=== PATIENT | female | born 1980 | race Caucasian/White ===

== ENCOUNTER 2018-10-28 06:42 | Day surgery (SDC) | payer OTHER, SELFPAY ==
[2018-10-28] VITALS (11 sets, daily range): BP systolic 87–98; BP diastolic 51–65; PULSE 72–85; RESP 12–17; TEMP 36.2–37; O2SAT 94–98; BMI 26.4
--- NOTE | 2018-10-28 | PATH_ITS ---
[facility] Accession Number: [id number] . 01 Material submitted: . PART A: DUODENUM PART B: ANTRUM PART C: GE JUNCTION PART D: BIOPSY OF 25CM PART E: POLYP AT 15CM . 02 Diagnosis: A. Duodenum, Biopsies: Duodenal mucosa with gastric heterotopia. Negative for intraepithelial lymphocytosis or villous blunting. Negative for dysplasia and malignancy. . B. Stomach, Antrum, Biopsy: Antral mucosa with no diagnostic abnormality. No evidence of Helicobacter on H/E stain. Negative for intestinal metaplasia. Negative for dysplasia and malignancy. . C. Gastroesophageal Junction, Biopsy: Squamocolumnar junctional mucosa with no diagnostic abnormality. Negative for intestinal metaplasia. Negative for dysplasia and malignancy. . D. Colon, 25 cm, Biopsy: Tubular adenoma. . E. Colon, Polyp at 15 cm, Biopsy: Tubulovillous adenoma. No evidence of malignancy or high-grade dysplasia. [facility]/10/29/2018 . 02 Electronically signed: . Thi Foote MD, Pathologist NPI- [id number] . 01 Gross description: . Received five formalin-filled containers, each labeled with the patient's name: . A. In a container labeled duodenum, the specimen consists of two 0.1 0.2 cm portions of tissue, entirely submitted in cassette A. B. In a container labeled antrum, the specimen consists of a 0.1 cm portion of tissue, entirely submitted in cassette B. C. In a container labeled GE junction, the specimen consists of two 0.2-0.4 cm portions of tissue, entirely submitted in cassette C. D. In a container labeled biopsy at 25 cm, the specimen consists of three 0.3-0.4 cm portions of tissue, entirely submitted in cassette D. E. In a container labeled polyp at 15 cm, the specimen consists of multiple fragments of fisher, soft tissue and/or debris which range in size from less than 0.1 cm to 1.2 cm in greatest dimension. The smallest fragments are entirely submitted cassette E1. The largest fragment is trisected and totally submitted in cassette E2. ([id number]) /FRR . 02 Pathologist provided ICD-10: D12.6 . 02 CPT . 830550, 724644, 339656, [id number], [id number] Performed at: 01 [facility] [address] [address], [place], [place] [id number] MD Cameron Wiseman MD Phone: [phone] Performed at: 02 [facility] [address] [address] [place] [id number] MD Thi Foote MD Phone: [phone]
[2018-10-28] MEDS: SODIUM CHLORIDE 0.9% 1,000 ML 200 ML IV (09:00)
--- NOTE | 2018-10-28 09:10 | PM.HP.1 ---
History of Present Illness Date Patient Seen: 10/28/18 Time Patient Seen: 09:11 Chief complaint: [id number] Narrative: Jillian is a 38-year-old lady who presents today for EGD and colonoscopy due to bright red blood per rectum. She denies any changes in her health since I last saw her in the office in mid September. She reports that she is feeling well today. Patient History Surgical History History of third molar tooth extraction Family & Social History Family History: Reviewed 10/28/18 by Katarzyna Nielson MD Social History: household members children Tobacco & Substance use: Smoking Status Current every day smoker alcohol intake current Meds Home Medications Medication Instructions Recorded Confirmed Type Breast Pump - Double Electric 1 dev SEE INSTRUCTIONS #1 07/15/16 Rx imiquimod [Aldara] 1 randolph TOPICAL 3 TIMES/WEEK #10 pac 11/14/16 Rx levonorgestrel [Mirena] 52 mg INTRAU #0 02/11/17 History acetaminophen 500 mg tablet 1,000 mg PO .prn PRN tab 09/23/18 10/28/18 History ascorbic acid 1,000 mg PO each 09/23/18 09/23/18 History nq-nmldpmhvrayt-evhbxogb powder effervescent pack hydrocodone 5 mg-acetaminophen 300 1 tab PO .prn tab 09/23/18 09/23/18 History mg tablet Allergies Allergy/AdvReac Type Severity Reaction Status Date / Time ibuprofen [IBUPROFEN] AdvReac Intermediate MAKES MY Verified 10/28/18 07:59 STOMACH BLEED Latex, Natural Rubber AdvReac Intermediate Rash Verified 10/28/18 07:59 Review of Systems Review of Systems All systems reviewed & are unremarkable except as noted in HPI and below Exam Vital Signs (past 8 hours): - 10/28/18 08:03 Temperature 98.0 F Pulse Rate 77 Respiratory Rate 16 Blood Pressure 92/65 Pulse Oximetry 98 Oxygen Delivery Method Room Air Narrative Exam Narrative: Well-nourished well-developed young woman in no distress. HEENT: Normocephalic and atraumatic, pupils equal round reactive to light accommodation with anicteric sclera Lungs: Clear bilaterally Heart: Regular rate and rhythm Abdomen: Soft, nontender, active bowel sounds Extremities: Warm and well perfused without edema Assessment & Plan Plan: Assessment/Plan Narrative: Wonderful 38-year-old lady who is generally healthy. We discussed the risks and benefits of both EGD and colonoscopy the patient expressed a desire to have the procedures today.
--- NOTE | 2018-10-28 09:13 | P.HP_ITS ---
History of Present Illness Date Patient Seen: 10/28/18 Time Patient Seen: 09:11 Chief complaint: [id number] Narrative: Jillian is a 38-year-old lady who presents today for EGD and colonoscopy due to bright red blood per rectum. She denies any changes in her health since I last saw her in the office in mid September. She reports that she is feeling well today. Patient History Surgical History History of third molar tooth extraction Family & Social History Family History: Reviewed 10/28/18 by Katarzyna Nielson MD Social History: household members children Tobacco & Substance use: Smoking Status Current every day smoker alcohol intake current Meds Home Medications Medication Instructions Recorded Confirmed Type Breast Pump - Double Electric 1 dev SEE INSTRUCTIONS #1 07/15/16 Rx imiquimod [Aldara] 1 randolph TOPICAL 3 TIMES/WEEK #10 pac 11/14/16 Rx levonorgestrel [Mirena] 52 mg INTRAU #0 02/11/17 History acetaminophen 500 mg tablet 1,000 mg PO .prn PRN tab 09/23/18 10/28/18 History ascorbic acid 1,000 mg PO each 09/23/18 09/23/18 History lz-mvclgbwnogik-ovnjwfba powder effervescent pack hydrocodone 5 mg-acetaminophen 300 1 tab PO .prn tab 09/23/18 09/23/18 History mg tablet Allergies Allergy/AdvReac Type Severity Reaction Status Date / Time ibuprofen [IBUPROFEN] AdvReac Intermediate MAKES MY Verified 10/28/18 07:59 STOMACH BLEED Latex, Natural Rubber AdvReac Intermediate Rash Verified 10/28/18 07:59 Review of Systems Review of Systems All systems reviewed & are unremarkable except as noted in HPI and below Exam Vital Signs (past 8 hours): - 10/28/18 08:03 Temperature 98.0 F Pulse Rate 77 Respiratory Rate 16 Blood Pressure 92/65 Pulse Oximetry 98 Oxygen Delivery Method Room Air Narrative Exam Narrative: Well-nourished well-developed young woman in no distress. HEENT: Normocephalic and atraumatic, pupils equal round reactive to light accommodation with anicteric sclera Lungs: Clear bilaterally Heart: Regular rate and rhythm Abdomen: Soft, nontender, active bowel sounds Extremities: Warm and well perfused without edema Assessment & Plan Plan: Assessment/Plan Narrative: Wonderful 38-year-old lady who is generally healthy. We discussed the risks and benefits of both EGD and colonoscopy the patient expressed a desire to have the procedures today.
[2018-10-28] MEDS: fentaNYL 250 MCG/5 ML INJ IV (09:22)
[2018-10-28] MEDS: MIDAZOLAM 5 MG/5 ML VIAL IV (09:22)
--- NOTE | 2018-10-28 09:55 | PM.OP.1 ---
Operative Date/Time/Diagnoses Date of procedure: 10/28/18 Time of procedure: 09:55 Pre-op diagnosis: Bright red blood per rectum Post-op diagnosis: same Procedure & Clinicians Procedure: Esophagogastroduodenoscopy and colonoscopy with biopsies and polypectomy x4 Same procedure as scheduled: Yes Indications: No prior colonoscopy or esophagogastroduodenoscopy Surgeon: Katarzyna Nielson Click Yes if Unassisted: Yes Anesthesia Type: Sedation (Versed 10 mg; fentanyl 300 mcg) Operative Notes Findings: 1. The 1st portion of the duodenum with hyperplastic appearing mucosa consistent with gastric heterotopia or healing ulceration 2. Mild antral gastritis 3. Evidence of healing linear ulcerations in the cardia of the stomach 4. Esophageal hiatus at 36 cm from the incisors and mucosal junction at 35 cm from the incisors 5. Regular appearing mucosal junction 6. The remainder of the esophagus is normal in appearance 7. Normal posterior oropharynx and true vocal cords 8. Excellent prep. 9. Two 2-3 mm sessile polyps at 25 cm from the anal verge removed with Jumbo cold forceps and retained for pathology 10. One 4 mm polyp and 1 15 mm polyp at 15 cm from the anal verge removed with snare and cautery and retained for pathology 11. Grade 1 internal and Closure Type: not applicable Estimated Blood Loss (mL): 1 Procedure in detail: After obtaining informed consent, the patient was brought to the GI suite and placed in the left lateral decubitus position on the examination table. After placement of appropriate monitors, the patient was given incremental doses of Versed and Fentanyl until an appropriate level of sedation was achieved. A time out was held per SCOAP protocol.We began with EGD. A bite block was gently placed between the patient's teeth. The endoscope was lubricated and then passed into the patient's posterior oropharynx. The esophagus was cannulated under direct vision and the scope was passed to the second portion of the duodenum without difficulty. The scope was then withdrawn with careful examination of all areas of the upper GI tract and mucosa. In the stomach, the instrument was retroflexed and the GE junction examined. The scope was straightened and the procedure continued with examination of the remainder of the upper GI tract. Findings are noted above. Air was aspirated from the stomach and the endoscope gently removed from the esophagus. The examination table was turned and we continued with the colonoscopy. A digital rectal examination was performed and did not reveal any masses or obstructing lesions. The colonoscope was gently passed into the patient's anus and the entire colon navigated to the level of the cecum with minimal difficulty. Once in the cecum, the scope was withdrawn being sure to go before and beyond all mucosal folds and prominences and get an excellent examination. The findings are noted above. At the level of the rectal vault, the scope was retroflexed and the internal anal canal was examined. The scope was straightened and air aspirated from the colon. The instrument was removed from the patient's body and the procedure was concluded.The patient was allowed to awaken from sedation without difficulty and taken to the post-anesthesia care unit in good condition. Total sedation time was 41 min Total withdrawal time from the colonoscopy was 16 min 8 sec Complications: none Condition: stable Disposition: PACU Plan for aftercare: 1. Discharge to home 2. We will contact you with pathology results 3. Plan for next colonoscopy in 1 year or sooner depending upon pathology results
[2018-10-28] MEDS: LIDOCAINE 4% SOLN 50 ML 20 ML TOP (10:02)
[2018-10-28] MEDS: TETRACAINE/BENZOCAINE/BUTAMBEN (CETACAINE) BOTTLE 1 SPRAY TOP (10:03)
== END 2018-10-28 11:20 | disposition home or self-care (01) ==
PROVIDERS: PCP Family Medicine; Visit Provider Surgery
PROC: 0DJ08ZZ Inspection of Upper Intestinal Tract, Via Natural or Artificial Opening Endoscopic (ICD-10-PCS; CPT 43235; principal; 2018-10-28 08:45)
PROC: 0DJD8ZZ Inspection of Lower Intestinal Tract, Via Natural or Artificial Opening Endoscopic (ICD-10-PCS; CPT 45378; 2018-10-28 08:45)
DX: K62.5 Hemorrhage of anus and rectum (principal); K29.70 Gastritis, unspecified, without bleeding; D12.6 Benign neoplasm of colon, unspecified; F17.210 Nicotine dependence, cigarettes, uncomplicated
CPT/HCPCS: 45385; 45380; 43239; 99152; 99153; J2250; J3010

== ENCOUNTER → 2022-07-07 10:16 | Outpatient (CLI) | payer OTHER, SELFPAY ==
[2022-07-07 14:05] LABS: COVID19 -Nasal RAPID Negative (Negative)
== END ==
PROVIDERS: PCP Physician Assistant; Visit Provider Surgery
DX: Z20.822 Contact with and (suspected) exposure to COVID-19 (principal); Z01.812 Encounter for preprocedural laboratory examination
CPT/HCPCS: 87635; C9803

== ENCOUNTER → 2022-07-07 10:18 | Outpatient (CLI) | payer OTHER, SELFPAY ==
--- NOTE | 2022-07-07 | DI.MG.S_ITS ---
BILATERAL DIGITAL SCREENING MAMMOGRAM 3D/2D WITH CAD: 07/07/2022 CLINICAL: Routine screening. Baseline exam. Comparison is made to exam dated: 08/26/2017 mammogram - [facility]. There are scattered areas of fibroglandular density in both breasts (category b / 25%-50% glandular tissue). Current study was also evaluated with a Computer Aided Detection (CAD) system. No significant masses, calcifications, or other findings are seen in either breast. There has been no significant interval change. IMPRESSION: NEGATIVE There is no mammographic evidence of malignancy. A 1 year screening mammogram is recommended. Based on the Tyrer Cuzick model (a risk assessment model) the patient's lifetime risk is 11.1% and her 10 year risk is 1.5%. According to the ACR, ACS, and NCCN guidelines, an annual breast MRI exam along with mammogram is recommended if the patient's lifetime risk is 20% or greater. This exam was interpreted at Station ID: [id number]. NOTE: For mammograms, a report in lay terms will be sent to the patient. Approximately 15% of breast malignancies will not be visualized mammographically. In the management of a palpable breast mass, a negative mammogram must not discourage biopsy of a clinically suspicious lesion. Electronically Signed By: Tobias poe/[email or web address]:07/07/2022 13:35:34 letter sent: Normal Exam ACR BI-RADS Category 1: Negative 3341F
== END ==
PROVIDERS: PCP Physician Assistant; Referring Provider Physician Assistant; Visit Provider Physician Assistant
DX: Z12.31 Encounter for screening mammogram for malignant neoplasm of breast (principal)
CPT/HCPCS: 77063; 77067

== ENCOUNTER 2022-07-08 08:18 | Day surgery (SDC) | payer OTHER, SELFPAY ==
[2022-07-08] VITALS (7 sets, daily range): BP systolic 80–119; BP diastolic 33–75; PULSE 85–107; RESP 12–19; TEMP 36.3–36.8; O2SAT 97–100; BMI 31.1
[2022-07-08] MEDS: LACTATED RINGERS 1,000 ML 42 ML IV (08:50)
--- NOTE | 2022-07-08 08:59 | PM.HP.1 ---
History of Present Illness History of Present Illness Date Patient Seen: 07/08/22 Chief complaint: Colonoscopy Narrative: The patient presents for colorectal screening. She has a personal history of colonic polyps. Last colonoscopy 2019 significant for benign polyps. No personal or family history of colon cancer. On further history denies any recent gastrointestinal symptoms with the exception of occasional bright red blood per rectum which she attributes to hemorrhoid disease.. No nausea, vomiting, abdominal pain, loss of appetite, unexplained weight loss, change in bowel habits, diarrhea, constipation, melena. 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) Surgical History History of third molar tooth extraction Family & Social History Family History Father Hypertension Cancer of kidney Heart disease Diabetes mellitus Hyperlipidemia Grandmother Hypertension Cancer Brother Diabetes mellitus Grandmother Cancer Heart disease Grandfather Diabetes mellitus Social History: household members children Tobacco & Substance use: Tobacco type cannabis/marijuana Smoking Status Former smoker alcohol intake current alcohol intake frequency holiday/special occasion Substance Use Type marijuana Meds Home Medications and Allergies Home Medications Medication Instructions Recorded Confirmed Type levonorgestrel 20 mcg/24 hours (7 52 mg INTRAU ##0 02/11/17 12/09/21 History yrs) 52 mg intrauterine device (Mirena) acetaminophen 500 mg tablet 1,000 mg PO .prn PRN Pain, Mild 09/23/18 12/09/21 History (Tylenol Extra Strength) ascorbic acid 1,000 mg PO 09/23/18 12/09/21 History yz-inmvlxbuqwwt-obgacgzs powder effervescent pack (Emergen-C) hydrocodone 5 mg-acetaminophen 300 1 tab PO .prn 09/23/18 12/09/21 History mg tablet Allergies Allergy/AdvReac Type Severity Reaction Status Date / Time ibuprofen [IBUPROFEN] AdvReac Intermediate MAKES MY Verified 07/08/22 08:30 STOMACH BLEED Latex, Natural Rubber AdvReac Intermediate Rash Verified 07/08/22 08:30 Exam Vital Signs (past 8 hours): - 07/08/22 08:25 Temperature 98.2 F Pulse Rate 100 H Respiratory Rate 18 Blood Pressure 119/73 Pulse Oximetry 98 Oxygen Delivery Method Room Air Oxygen Delivery Method Room Air Narrative Exam Narrative: General adult woman alert oriented no acute distress Abdomen soft nontender nondistended Assessment & Plan Assessment and plan (1) Personal history of colonic polyps: Status: Acute Assessment & Plan narrative: The patient requires colorectal screening and colonoscopy is recommended. Technical details were discussed. Risks, benefits, alternatives explained. Risks including but not limited to myocardial infarction, aspiration, bleeding, pain, missed lesion, incomplete examination, need for further radiographic studies, colonic perforation, and need for major abdominal surgery were discussed. All questions were answered to their satisfaction, and they are in agreement with this plan. Time Spent With Patient Critical Care time: I spent a total of [] minutes of critical care time on this patient's care today; this time is exclusive of procedural time.
[2022-07-08] MEDS: MIDAZOLAM 5 MG/5 ML VIAL IV (09:20)
[2022-07-08] MEDS: fentaNYL 100 MCG/2 ML INJ 150 MCG IV (09:20)
--- NOTE | 2022-07-08 09:32 | PM.OP.COLON ---
Operative Date/Time/Diagnoses Date of procedure: 07/08/22 Time of procedure: 09:33 Pre-op diagnosis: Personal history of colonic polyps Post-op diagnosis: same Procedure & Clinicians Study performed: Colonoscopy Same procedure as scheduled: Yes Indications: Personal history of colonic polyps Surgeon: Sergio Menendez Procedure Notes Procedure in detail: Medications: Conscious sedation using 6mg IV midazolam and 150mcg IV of fentanyl The history and physical was performed/updated and the patient is ASA class is 2. The procedure was discussed in detail with the patient. Potential risks complications including infection, bleeding, missed diagnosis, perforation, need for surgery, and were explained. Their questions were answered and informed consent was obtained. Patient was brought to the procedure room and placed standard monitoring equipment. The patient's vital signs were monitored continuously throughout the entire procedure. Prior to starting time-out was performed. The patient was placed in the left lateral recumbent position. Procedural sedation was administered. Examination began with a thorough inspection of the perianal area there was no evidence of fissures, fistulae, external hemorrhoids or cutaneous malignancy. The colonoscopy scope was then placed into the anal canal and was advanced to the cecum, which was identified by the ileocecal valve, the appendiceal orifice and the confluence of the taenia. The scope was then slowly withdrawn examining colon thoroughly in all directions, irrigating it of any residual stool. FINDINGS 1. No masses or polyps 2. Diverticulosis-mild The patient tolerated the procedure well. They will be discharged once criteria are met. The prep was of good/excellent quality. The withdrawl time was 8 minutes. The sedation time was 21minutes. Complications: none Impression: Normal colonoscopy Post-procedure Recommendations: Colonoscopy in 10 years and High fiber diet Disposition: same day surgery
== END 2022-07-08 10:26 | disposition home or self-care (01) ==
PROVIDERS: PCP Physician Assistant; Referring Provider Surgery; Visit Provider Surgery
PROC: 0DJD8ZZ Inspection of Lower Intestinal Tract, Via Natural or Artificial Opening Endoscopic (ICD-10-PCS; CPT 45378; principal; 2022-07-08 09:15)
DX: Z12.11 Encounter for screening for malignant neoplasm of colon (principal); Z86.010 Personal history of colon polyps; K57.30 Diverticulosis of large intestine without perforation or abscess without bleeding
CPT/HCPCS: 45378; 99152; J2250; J3010

== ENCOUNTER → 2023-09-19 11:11 | Outpatient (CLI) | payer OTHER, SELFPAY ==
--- NOTE | 2023-09-19 11:12 | DI.MG.S_ITS ---
BILATERAL DIGITAL SCREENING MAMMOGRAM 3D/2D WITH CAD: 09/19/2023 CLINICAL: Routine screening. Family history of breast cancer. Comparison is made to exams dated: 07/07/2022 mammogram - [facility] and 08/26/2017 mammogram - [facility]. There are scattered areas of fibroglandular density in both breasts (category b / 25%-50% glandular tissue). Current study was also evaluated with a Computer Aided Detection (CAD) system. No significant masses, calcifications, or other findings are seen in either breast. There has been no significant interval change. IMPRESSION: NEGATIVE There is no mammographic evidence of malignancy. A 1 year screening mammogram is recommended. Based on the Tyrer Cuzick model (a risk assessment model) the patient's lifetime risk is 11.1% and her 10 year risk is 1.6%. According to the ACR, ACS, and NCCN guidelines, an annual breast MRI exam along with mammogram is recommended if the patient's lifetime risk is 20% or greater. This exam was interpreted at Station ID: [id number]. NOTE: For mammograms, a report in lay terms will be sent to the patient. Approximately 15% of breast malignancies will not be visualized mammographically. In the management of a palpable breast mass, a negative mammogram must not discourage biopsy of a clinically suspicious lesion. Electronically Signed By: Yang [email or web address]/[email or web address]:09/21/2023 10:17:21 letter sent: Normal Exam ACR BI-RADS Category 1: Negative 3341F
== END ==
PROVIDERS: PCP Nurse Practitioner Family; Referring Provider Nurse Practitioner Family; Visit Provider Nurse Practitioner Family
DX: Z12.31 Encounter for screening mammogram for malignant neoplasm of breast (principal); Z80.3 Family history of malignant neoplasm of breast
CPT/HCPCS: 77063; 77067

== ENCOUNTER → 2024-10-03 14:58 | Outpatient (CLI) | payer BC, SELFPAY ==
--- NOTE | 2024-10-03 15:00 | DI.MG.S_ITS ---
BILATERAL DIGITAL SCREENING MAMMOGRAM 3D/2D WITH CAD: 10/03/2024 CLINICAL: Routine screening. Family history of breast cancer. Comparison is made to exams dated: 09/19/2023 mammogram, 07/07/2022 mammogram - [facility], and 08/26/2017 mammogram - [facility]. There are scattered areas of fibroglandular density (category b / 25%-50% glandular tissue). Current study was also evaluated with a Computer Aided Detection (CAD) system. No significant masses, calcifications, or other findings are seen in either breast. There has been no significant interval change. IMPRESSION: NEGATIVE There is no mammographic evidence of malignancy. A 1 year screening mammogram is recommended. Based on the Tyrer Cuzick model (a risk assessment model) the patient's lifetime risk is 11.0% and her 10 year risk is 1.8%. According to the ACR, ACS, and NCCN guidelines, an annual breast MRI exam along with mammogram is recommended if the patient's lifetime risk is 20% or greater. This exam was interpreted at Station ID: [id number]. NOTE: For mammograms, a report in lay terms will be sent to the patient. Approximately 15% of breast malignancies will not be visualized mammographically. In the management of a palpable breast mass, a negative mammogram must not discourage biopsy of a clinically suspicious lesion. Electronically Signed By: Yang [email or web address]/[email or web address]:10/04/2024 11:04:21 letter sent: Normal Exam ACR BI-RADS Category 1: Negative
== END ==
PROVIDERS: PCP Family Medicine; Referring Provider Family Medicine; Visit Provider Family Medicine
DX: Z12.31 Encounter for screening mammogram for malignant neoplasm of breast (principal); Z80.3 Family history of malignant neoplasm of breast
CPT/HCPCS: 77063; 77067